=== PATIENT | male | born 1990 | race Hispanic/Latino ===

== ENCOUNTER 2023-03-21 22:01 | Emergency (ER) | payer SELFPAY ==
[~2023-03-21] VITALS: Ht 160 cm; Wt 54.4 kg
[2023-03-21 22:09] VITALS: BP 137/90
[2023-03-21 22:35] LABS: BASO% 0.1 % (0-3); HEMATOCRIT 42.1 % (39.0-50.0); HEMOGLOBIN 13.8 g/dl (14.0-18.0); IMMATURE GRANULOCYTES 0.1 % (0.0-5.0); LYMPH% 18.8 % (15-41); MEAN CELL VOLUME 96.3 fL CALC (80.0-100.0); MEAN CORPUSCULAR HGB 31.6 pG CALC (26.0-32.0); MEAN CORPUSCULAR HGB CONC 32.8 g/dL CAL (32.0-36.0); MONO% 6.3 % (2-13); NEUT# 5.22 thou/uL (1.82-7.42); NEUT% 73.7 % (42-76); RED BLOOD COUNT 4.37 mill/uL (4.70-6.10); RED CELL DISTRI WIDTH 13.3 % (11.5-15.5)
[2023-03-21] MEDS ORDERED: HYDROmorphone HCL 2 MG/AMP IV ONE (22:45)
[2023-03-21 23:01] VITALS: BP 119/79
[2023-03-21] MEDS ORDERED: SODIUM CHLORIDE 0.9% 1,000 ML IV ONE (23:05)
[2023-03-21 23:23] LABS: ALBUMIN 4.8 g/dL (3.2-5.0); ALKALINE PHOSPHATASE 69 u/l (38-126); ANION GAP 16 (6-22 (CALC)); BILIRUBIN, TOTAL 0.3 mg/dL (0.2-1.3); BUN 6 mg/dL (9-20); BUN/CREATININE RATIO 8 (12-20 (CALC)); CARBON DIOXIDE 24 mmol/l (22-30); CHLORIDE 107 mmol/l (95-108); CREATININE 0.8 mg/dL (0.7-1.3); GFR FOR AFR.AMER. > 60 ML/MIN (>=60 (CALC)); GFR OTHER RACES > 60 ML/MIN (>=60 (CALC)); POTASSIUM 4.1 mmol/l (3.5-5.1); SGOT/AST 57 u/l (17-59); SODIUM 143 mmol/l (137-146); TOTAL PROTEIN 7.7 g/dL (6.3-8.2)
[2023-03-21 23:35] LABS: ETHYL ALCOHOL 375 mg/dl (0-30)
[2023-03-21 23:39] VITALS: BP 116/76
[2023-03-21 23:45] VITALS: BP 119/75
[2023-03-22] VITALS: BP 112/67
[2023-03-22 01:01] VITALS: BP 108/66
[2023-03-22] MEDS ORDERED: HYDROmorphone HCL 2 MG/AMP IV ONE (01:35)
[2023-03-22 01:48] VITALS: BP 123/79
[2023-03-22 01:52] LABS: URINE BILIRUBIN - DIPSTICK Negative (NEGATIVE); URINE BLOOD DIPSTICK Negative (NEGATIVE); URINE CLARITY Clear; URINE GLUCOSE - DIPSTICK Negative (NEGATIVE); URINE KETONE Negative (NEGATIVE); URINE LEUK ESTERASE Negative (Negative); URINE NITRITE - DIPSTICK Negative (Negative); URINE PH 5.5 (4.5-8.0); URINE PROTEIN - DIPSTICK Negative (NEG-TRACE); URINE SPECIFIC GRAVITY 1.015; URINE UROBILINOGEN - DIPSTICK 0.2 E.U./dL (0.2)
[2023-03-22 01:54] LABS: URINE COLOR Yellow
[2023-03-22 02:24] VITALS: BP 123/79
== END 2023-03-22 02:27 | DRG 563 ==
LOC: ED 22:01
PROVIDERS: Family Medicine
DX: S43.102A Unspecified dislocation of left acromioclavicular joint, initial encounter (principal); V13.4XXA Pedal cycle driver injured in collision with car, pick-up truck or van in traffic accident, initial encounter